=== PATIENT | female | born 1955 | race Caucasian/White ===

== ENCOUNTER 2021-04-29 06:12 | Observation (INO) | payer MEDICARE, BC ==
[2021-04-29] MEDS ORDERED: Ondansetron 4 MG/2 ML SDV ONE (06:35)
[2021-04-29] MEDS ORDERED: Sodium Chloride 0.9% 1,000 ML ONE (06:35)
[2021-04-29] MEDS ORDERED: Sodium Chloride 0.9% 1,000 ML IV ONE (06:38)
[2021-04-29] MEDS ORDERED: Ondansetron 4 MG/2 ML SDV IVPUSH ONE (06:38)
[2021-04-29] MEDS: Sodium Chloride 0.9% 10 ML Syringe FLUSH PRN ×2 (06:48→08:54)
--- NOTE | 2021-04-29 07:00 | EDM.PDOC ---
ED HPI GENERAL MEDICAL PROBLEM - General Chief Complaint: Abdominal Pain Stated Complaint: Abdominal Pain Time Seen by Provider: 04/29/21 06:40 Source of Information: Reports: Patient History Limitations: Reports: No Limitations - History of Present Illness INITIAL COMMENTS - FREE TEXT/NARRATIVE: 66 YO WF PRESENTS TO ER COMPLAINING OF GENERALIZED ABDOMINAL PAIN AND WATER DIARRHEA WHICH BEGAN YESTERDAY MORNING. PT REPORTS SHE DEVELOPED SEVERE/SHARP ABDOMINAL PAIN THAT MADE HER FEEL LIKE SHE WAS GOING TO PASS OUT. PT REPORTS ASSOCIATED NAUSEA WITHOUT VOMITING. PT DENIES FEVER/CHILLS, NO COUGH/CONGESTION. PT WORKS AT [employer] AND IS TESTED WEEKLY FOR COVID. PT IS ALSO VACCINATED FOR COVID. PT REPORTS PREVIOUS CHOLECYSTECTOMY AND APPENDECTOMY. PT DENIES BLACK OR BLOODY STOOLS. Onset Date: 04/28/21 Location: Reports: Abdomen Quality: Reports: Ache Severity: Severe Improves with: Reports: Rest Worsens with: Reports: Movement Associated Symptoms: Reports: No Other Symptoms, Loss of Appetite, Nausea/Vomiting. Denies: Chest Pain, Cough, Fever/Chills, Shortness of Breath, Syncope, Weakness Abdomen Pain Score (Numeric/FACES): 10 - Related Data Allergies Allergy/AdvReac Type Severity Reaction Status Date / Time chocolate flavor Allergy Airway Verified 04/29/21 06:23 Tightness diphenhydramine Allergy Other Verified 04/29/21 06:23 [From Benadryl] egg Allergy Airway Verified 04/29/21 06:23 Tightness fexofenadine [From Erica-D] Allergy Stomach Verified 04/29/21 06:23 Ache Fish Containing Products Allergy Airway Verified 04/29/21 06:23 Tightness loratadine [From Claritin-D] Allergy Other Verified 04/29/21 06:23 nut - unspecified Allergy Airway Verified 04/29/21 06:23 Tightness Penicillins Allergy Airway Verified 04/29/21 06:23 Tightness pregabalin [From Lyrica] Allergy Other Verified 04/29/21 06:50 pseudoephedrine Allergy Other Verified 04/29/21 06:23 [From Claritin-D] sertraline [From Zoloft] Allergy Airway Verified 04/29/21 06:23 Tightness Sulfa (Sulfonamide Allergy Airway Verified 04/29/21 06:23 Antibiotics) Tightness Home Meds: Home Meds Aspirin [Halfprin] 81 mg PO DAILY 04/29/21 [History] Calcium Carbonate/Vitamin D3 [Calcium 600-Vit D3 400 Tablet] 1 each PO DAILY 04/29/21 [History] Citalopram Hydrobromide [Celexa] 20 mg PO DAILY 04/29/21 [History] Niacin 400 mg PO DAILY 04/29/21 [History] Vit A/Vit C/Vit E/Zinc/Copper [Preservision] 1 tab PO DAILY 04/29/21 [History] rOPINIRole [Requip] 0.5 mg PO BID 04/29/21 [History] ED ROS GENERAL - Review of Systems Review Of Systems: See Below Constitutional: Reports: Decreased Appetite HEENT: Reports: No Symptoms Respiratory: Reports: No Symptoms Cardiovascular: Reports: No Symptoms Endocrine: Reports: No Symptoms GI/Abdominal: Reports: Abdominal Pain, Diarrhea, Nausea. Denies: Black Stool, Bloody Stool, Hematemesis, Hematochezia, Melena, Vomiting : Reports: No Symptoms Musculoskeletal: Reports: No Symptoms Skin: Reports: No Symptoms Neurological: Reports: No Symptoms Psychiatric: Reports: No Symptoms Hematologic/Lymphatic: Reports: No Symptoms Immunologic: Reports: No Symptoms ED EXAM, GI/ABD - Physical Exam Exam: See Below Exam Limited By: No Limitations General Appearance: Alert, WD/WN, No Apparent Distress Head: Atraumatic, Normocephalic Neck: Normal Inspection, Supple, Non-Tender, Full Range of Motion Respiratory/Chest: No Respiratory Distress, Lungs Clear, Normal Breath Sounds, No Accessory Muscle Use, Chest Non-Tender Cardiovascular: Normal Peripheral Pulses, Regular Rate, Rhythm, No Edema, No Gallop, No JVD, No Murmur, No Rub GI/Abdominal Exam: Normal Bowel Sounds, Soft, No Organomegaly, No Distention, No Abnormal Bruit, No Mass, Pelvis Stable, Tender (GENERALIZED BUT LOCALIZES TO RIGHT SIDE OF ABDOMINAL RUQ GREATER THAN RLQ) Back Exam: Normal Inspection, Full Range of Motion, NT Extremities: Normal Inspection, Normal Range of Motion, Non-Tender, Normal Capillary Refill, No Pedal Edema Neurological: Alert, Oriented, CN II-XII Intact, Normal Cognition, Normal Gait, Normal Reflexes, No Motor/Sensory Deficits Psychiatric: Normal Affect, Normal Mood Skin Exam: Warm, Dry, Intact, Normal Color, No Rash Lymphatic: No Adenopathy Course - Vital Signs Last Recorded V/S: Last Vital Signs Temp 98.2 F 04/29/21 06:27 Pulse 67 04/29/21 08:00 Resp 18 04/29/21 08:00 BP 127/81 04/29/21 08:00 Pulse Ox 98 04/29/21 08:00 - Orders/Labs/Meds Orders: Active Orders 24 hr Category Date Time Status Peripheral IV Care [RC] . DIRECTED Care 04/29/21 06:37 Active CULTURE URINE [RM] Urgent Lab 04/29/21 06:50 Received Sodium Chloride 0.9% [Normal Saline] 50 ml Med 04/29/21 07:15 Active IV ASDIRECTED Sodium Chloride 0.9% [Saline Flush] Med 04/29/21 06:37 Active 10 ml FLUSH Q8HR PRN Peripheral IV Insertion Adult [OM.PC] Routine Oth 04/29/21 06:37 Ordered Medication Orders Sodium Chloride (Normal Saline) 50 mls @ 200 mls/min IV ASDIRECTED PATRICIA Last Admin: 04/29/21 07:48 Dose: 200 mls/min Documented by: KAYLENE Sodium Chloride (Sodium Chloride 0.9% 10 Ml Syringe) 10 ml FLUSH Q8HR PRN PRN Reason: keep vein open Last Admin: 04/29/21 06:48 Dose: 10 ml Documented by: NII Labs: Laboratory Tests 04/29/21 04/29/21 04/29/21 Range/Units 06:37 06:37 06:50 WBC 9.21 (5.00-10.00) 10^3/uL RBC 4.84 (3.80-5.50) 10^6/uL Hgb 14.3 (12.0-16.0) g/dL Hct 42.6 (37.0-47.0) % MCV 88.0 (82.0-92.0) fL MCH 29.5 (27.0-31.0) pg MCHC 33.6 (32.0-36.0) g/dL RDW 12.9 (11.5-14.5) % Plt Count 280 (150-400) 10^3/uL MPV 9.1 (7.4-10.4) fL Immature Gran % (Auto) 0.1 (0.0-5.0) % Neut % (Auto) 77.2 H (50.0-70.0) % Lymph % (Auto) 13.5 L (20.0-40.0) % [place] % (Auto) 8.8 H (2.0-8.0) % Eos % (Auto) 0.2 L (1.0-3.0) % Baso % (Auto) 0.2 (0.0-1.0) % Neut # (Auto) 7.11 H (2.50-7.00) 10^3/uL Lymph # (Auto) 1.24 (1.00-4.00) 10^3/uL [place] # (Auto) 0.81 H (0.10-0.80) 10^3/uL Eos # (Auto) 0.02 L (0.10-0.30) 10^3/uL Baso # (Auto) 0.02 (0.00-0.10) 10^3/uL Immature Gran # (Auto) 0.01 (0.00-0.50) 10^3/uL Sodium 142 (136-145) mmol/L Potassium 4.4 (3.5-5.1) mmol/L Chloride 106 (98-107) mmol/L Carbon Dioxide 26.6 (21.0-32.0) mmol/L Anion Gap 13.8 (5-15) mmol/L BUN 22 H (7-18) mg/dL Creatinine 0.72 (0.51-1.17) mg/dL Est Cr Clr Drug Dosing 63.58 mL/min Estimated GFR (MDRD) > 60 mL/min Glucose 142 H (70-140) mg/dL Calcium 9.3 (8.7-10.3) mg/dL Total Bilirubin 0.4 (0.2-1.0) mg/dL AST 15 (15-37) U/L ALT 25 (14-63) U/L Alkaline Phosphatase 53 (46-116) U/L Total Protein 7.0 (6.4-8.2) g/dL Albumin 3.49 (3.40-5.00) g/dL Lipase 98 (73-393) U/L Specimen Type Urincc Urine Color Yellow (YELLOW) Urine Appearance Slightly cloudy H (CLEAR) Urine pH 6.0 (5.0-9.0) Ur Specific [place] 1.025 (1.005-1.030) Urine Protein Negative (NEGATIVE) mg/dL Urine Glucose (UA) Negative (NEGATIVE) mg/dL Urine Ketones Negative (NEGATIVE) mg/dL Urine Occult Blood Large H (NEGATIVE) Urine Nitrite Negative (NEGATIVE) Urine Bilirubin Negative (NEGATIVE) Urine Urobilinogen 0.2 (0.2-1.0) E.U./dL Ur Leukocyte Esterase Trace H (NEGATIVE) Urine RBC 40-50 H (0-5) /HPF Urine WBC 10-20 H (0-5) /HPF Ur Epithelial Cells Few /LPF Urine Bacteria Few (NONE TO FEW) /HPF Urine Mucus Occasional H (NEGATIVE) /LPF Meds: Medications Generic Name Dose Route Start Last Admin Trade Name Freq PRN Reason Stop Dose Admin Sodium Chloride 50 mls @ 200 mls/min 04/29/21 07:15 04/29/21 07:48 Normal Saline IV 200 mls/min ASDIRECTED PATRICIA Administration Sodium Chloride 10 ml 04/29/21 06:37 04/29/21 06:48 Sodium Chloride 0.9% 10 Ml Syringe FLUSH 10 ml Q8HR PRN Administration keep vein open Discontinued Medications Generic Name Dose Route Start Last Admin Trade Name Freq PRN Reason Stop Dose Admin Sodium Chloride Confirm 04/29/21 06:35 04/29/21 06:45 Normal Saline Administered 04/29/21 06:36 Not Given Dose 1,000 mls @ as directed .ROUTE .STK-MED ONE Sodium Chloride 1,000 mls @ 999 mls/hr 04/29/21 06:38 04/29/21 06:46 Normal Saline IV 04/29/21 07:38 999 mls/hr .BOLUS ONE Administration Iopamidol 75 ml 04/29/21 07:13 04/29/21 07:48 Iopamidol 755 Mg/Ml 75 Ml Bottle IVPUSH 04/29/21 07:14 75 ml ONETIME ONE Administration Ketorolac Tromethamine 30 mg 04/29/21 07:18 04/29/21 07:30 Ketorolac 30 Mg/Ml Sdv IVPUSH 04/29/21 07:19 30 mg ONETIME ONE Administration Ondansetron HCl Confirm 04/29/21 06:35 04/29/21 06:45 Ondansetron 4 Mg/2 Ml Sdv Administered 04/29/21 06:36 Not Given Dose 4 mg .ROUTE .STK-MED ONE Ondansetron HCl 4 mg 04/29/21 06:38 04/29/21 06:46 Ondansetron 4 Mg/2 Ml Sdv IVPUSH 04/29/21 06:39 4 mg ONETIME ONE Administration - Radiology Interpretation Free Text/Narrative:: CT ABD/PELVIS- JEJUNUM INFLAMMATORY CHANGES CONSISTENT WITH ENTERITIS- INFLAMMATORY VS INFECTIOUS. Departure - Departure Time of Disposition: 08:49 Disposition: Refer to Observation Condition: Fair Clinical Impression: Enteritis Abdominal pain Qualifiers: Abdominal location: generalized Qualified Code(s): R10.84 - Generalized abdominal pain - Discharge Information Forms: ED Department Discharge Sepsis Event Note (ED) - Focused Exam Vital Signs: Vital Signs Temp Pulse Resp BP Pulse Ox 04/29/21 08:00 67 18 127/81 98 04/29/21 07:08 68 20 114/72 99 04/29/21 06:27 98.2 F 66 20 119/73 96 - My Orders Last 24 Hours: My Active Orders 04/29/21 06:37 Peripheral IV Care [RC] . DIRECTED Sodium Chloride 0.9% [Saline Flush] 10 ml FLUSH Q8HR PRN Peripheral IV Insertion Adult [OM.PC] Routine 04/29/21 06:50 CULTURE URINE [RM] Urgent 04/29/21 07:15 Sodium Chloride 0.9% [Normal Saline] 50 ml IV ASDIRECTED - Assessment/Plan Last 24 Hours: My Active Orders 04/29/21 06:37 Peripheral IV Care [RC] . DIRECTED Sodium Chloride 0.9% [Saline Flush] 10 ml FLUSH Q8HR PRN Peripheral IV Insertion Adult [OM.PC] Routine 04/29/21 06:50 CULTURE URINE [RM] Urgent 04/29/21 07:15 Sodium Chloride 0.9% [Normal Saline] 50 ml IV ASDIRECTED Assessment:: 1. ABDOMINAL PAIN 2. ENTERITIS- INFECTIOUS VS INFLAMMATORY Plan: 1. ADMIT FOR OBS- VANDANA HUNTER ACCEPTED @0833 2. IVF 3. NPO 4. SUPPORTIVE CARE 5. ADDITIONAL ORDERS PER MEDICINE- VANDANA ROBLES
[2021-04-29 07:07] LABS: ANION GAP 13.8 mmol/L (5-15); CHLORIDE,CL 106 mmol/L (98-107); SODIUM,NA 142 mmol/L (136-145)
[2021-04-29] MEDS ORDERED: Iopamidol 755 Mg/ML 75 ML Bottle IVPUSH ONE (07:13)
[2021-04-29] MEDS ORDERED: Sodium Chloride 0.9% 50 ML IV SCH (07:15)
[2021-04-29] MEDS ORDERED: Ketorolac 30 MG/ML SDV IVPUSH ONE (07:18)
--- NOTE | 2021-04-29 08:26 | CT ---
[id number] CT/CT Abdomen Pelvis W IV EXAM: CT Abdomen Pelvis W IV CLINICAL DATA: ABDOMINAL PAIN COMPARISON STUDY: None. FINDINGS: Partially visualized subcentimeter noncalcified pulmonary nodule at the right lung base. Dependent atelectasis at the lung bases bilaterally. The gallbladder is surgically absent. The liver, spleen, pancreas, and adrenal glands are unremarkable. 11 mm calculus a right lower pole calyx resulting in mild caliectasis. Bilateral renal cortical cysts. There are a few abnormal loops of jejunum within the left lower quadrant. There is wall thickening and edema with associated inflammatory change and trace adjacent free fluid. No evidence of obstruction. Multiple prominent mesenteric lymph nodes none of which are pathologically enlarged by CT size criteria. Scattered changes of spondylosis the spine. No fracture or osseous lesion. IMPRESSION: 1. A few abnormal loops of small bowel within the left lower quadrant. This includes wall thickening and wall edema. Additionally there is surrounding inflammatory change as well as a small amount of trace free fluid. No definite evidence of obstruction. Findings are suggestive of focal enteritis. Infectious/inflammatory process is favored. Surgical consultation could be considered for further evaluation. 2. 11 mm calculus a right lower pole calyx resulting in mild caliectasis. Kevin Marcial DO 04/29/21 0825 Thank you for allowing us to participate in the care of your patient.
[2021-04-29] MEDS ORDERED: methylPREDNISolone Sodium Succinate 125 MG/2 ML SDV IVPUSH ONE (08:39)
[2021-04-29] MEDS: Sodium Chloride 0.9% 1,000 ML IV SCH ×2 (10:10→18:19)
[2021-04-29] MEDS ORDERED: Ketorolac 30 MG/ML SDV IVPUSH PRN ×3 (10:58→11:48)
[2021-04-29] MEDS ORDERED: Ondansetron 4 MG/2 ML SDV IV PRN (10:59)
[2021-04-29] MEDS ORDERED: Sodium Chloride 0.9% 1,000 ML IV SCH (11:00)
--- NOTE | 2021-04-29 11:58 | PCM.HP.2 ---
H&P History of Present Illness - General Date of Service: 04/29/21 Admit Problem/Dx: Admission Diagnosis/Problem Admission Diagnosis/Problem Enteritis Source of Information: Patient - History of Present Illness Initial Comments - Free Text/Narative: 66 year old female presented to the ED with complaints of generalized severe abdominal pain for the past day. She has had four episodes of watery diarrhea and nausea, but no vomiting. Denies fever/chills. Last colonoscopy one year ago and normal per report. CT scan completed in the ED revealing "a few abnormal loops of jejunum within the left lower quadrant. This includes wall thickening and wall edema. Additionally there is surrounding inflammatory change as well as a small amount of trace free fluid. No definite evidence of obstruction. Findings are suggestive of focal enteritis. Infectious/inflammatory process favored. Surgical consultation could be considered for further evalutation.". Patient admitted observation for further evaluation. Abdomen Pain Score (Numeric/FACES): 10 - Related Data Allergies/Adverse Reactions: Allergies Allergy/AdvReac Type Severity Reaction Status Date / Time chocolate flavor Allergy Airway Verified 04/29/21 06:23 Tightness diphenhydramine Allergy Other Verified 04/29/21 06:23 [From Benadryl] egg Allergy Airway Verified 04/29/21 06:23 Tightness fexofenadine [From Erica-D] Allergy Stomach Verified 04/29/21 06:23 Ache Fish Containing Products Allergy Airway Verified 04/29/21 06:23 Tightness loratadine [From Claritin-D] Allergy Other Verified 04/29/21 06:23 nut - unspecified Allergy Airway Verified 04/29/21 06:23 Tightness Penicillins Allergy Airway Verified 04/29/21 06:23 Tightness pregabalin [From Lyrica] Allergy Other Verified 04/29/21 06:50 pseudoephedrine Allergy Other Verified 04/29/21 06:23 [From Claritin-D] sertraline [From Zoloft] Allergy Airway Verified 04/29/21 06:23 Tightness Sulfa (Sulfonamide Allergy Airway Verified 04/29/21 06:23 Antibiotics) Tightness Home Medications: Home Meds Aspirin [Halfprin] 81 mg PO DAILY 04/29/21 [History] Calcium Carbonate/Vitamin D3 [Calcium 600-Vit D3 400 Tablet] 1 each PO DAILY 04/29/21 [History] Citalopram Hydrobromide [Celexa] 20 mg PO DAILY 04/29/21 [History] Niacin 400 mg PO DAILY 04/29/21 [History] Vit A/Vit C/Vit E/Zinc/Copper [Preservision] 1 tab PO DAILY 04/29/21 [History] rOPINIRole [Requip] 0.5 mg PO BID 04/29/21 [History] Past Medical History HEENT History: Reports: Impaired Vision Cardiovascular History: Reports: None Respiratory History: Reports: None Genitourinary History: Reports: None Musculoskeletal History: Reports: None Psychiatric History: Reports: Anxiety, Depression Endocrine/Metabolic History: Reports: None Dermatologic History: Reports: None - Infectious Disease History Infectious Disease History: Reports: Influenza - Past Surgical History GI Surgical History: Reports: Appendectomy, Cholecystectomy Female Surgical History: Reports: Hysterectomy Social & Family History - Tobacco Use Tobacco Use Status *Q: Never Tobacco User - Caffeine Use Caffeine Use: Reports: Soda - Recreational Drug Use Recreational Drug Use: No H&P Review of Systems - Review of Systems: Review Of Systems: See Below General: Denies: Fever, Weakness, Fatigue HEENT: Denies: Headaches, Sinus Congestion, Sore Throat Pulmonary: Denies: Shortness of Breath, Wheezing, Cough Cardiovascular: Denies: Chest Pain, Palpitations, Edema, Lightheadedness Gastrointestinal: Reports: Abdominal Pain (generalized), Diarrhea (four "explosive" diarrhea stools), Nausea. Denies: Bloody Stool, Vomiting Genitourinary: Denies: Dysuria, Frequency, Urgency, Hematuria Musculoskeletal: Reports: Back Pain (chronic), Muscle Pain (chronic). Denies: Neck Pain Skin: Denies: Pallor, Dryness, Bruising, Rash, Erythema Psychiatric: Denies: Confusion, Depression, Anxiety Neurological: Denies: Confusion, Headache, Trouble Speaking, Difficulty Walking Exam - Exam Exam: See Below - Vital Signs Vital Signs: Last Vital Signs Temp 36.9 C 04/29/21 10:00 Pulse 62 04/29/21 10:00 Resp 16 04/29/21 10:00 BP 117/69 04/29/21 10:00 Pulse Ox 98 04/29/21 10:00 Weight: 69.49 kg - Exam Physical Exam Comments:: GENERAL: Well-appearing adult in no acute distress. HEENT: Normocephalic, atraumatic. Conjunctiva clear. Nares patent without discharge. Mucous membranes moist, posterior pharynx unremarkable. NECK: Supple, no masses. CV: Regular rate and rhythm, no murmurs, rubs, or gallops. 2+ radial pulses. PULMONARY: Normal effort, clear to auscultation bilaterally, no wheezes, rales, or rhonchi. ABDOMEN: Positive bowel sounds, soft, nondistended, generalized mild tenderness on palpation. EXTREMITIES: No edema, cyanosis, or clubbing. MUSCULOSKELETAL: Moves all extremities well. NEUROLOGICAL: No obvious deficits. DERMATOLOGIC: No rashes or suspicious lesions in exposed areas. PSYCHIATRIC: Alert, interactive, appropriate affect. - Patient Data Lab Results Last 24 hrs: Laboratory Results - last 24 hr 04/29/21 04/29/21 04/29/21 Range/Units 06:37 06:37 06:50 WBC 9.21 (5.00-10.00) 10^3/uL RBC 4.84 (3.80-5.50) 10^6/uL Hgb 14.3 (12.0-16.0) g/dL Hct 42.6 (37.0-47.0) % MCV 88.0 (82.0-92.0) fL MCH 29.5 (27.0-31.0) pg MCHC 33.6 (32.0-36.0) g/dL RDW 12.9 (11.5-14.5) % Plt Count 280 (150-400) 10^3/uL MPV 9.1 (7.4-10.4) fL Immature Gran % (Auto) 0.1 (0.0-5.0) % Neut % (Auto) 77.2 H (50.0-70.0) % Lymph % (Auto) 13.5 L (20.0-40.0) % Carbon % (Auto) 8.8 H (2.0-8.0) % Eos % (Auto) 0.2 L (1.0-3.0) % Baso % (Auto) 0.2 (0.0-1.0) % Neut # (Auto) 7.11 H (2.50-7.00) 10^3/uL Lymph # (Auto) 1.24 (1.00-4.00) 10^3/uL Carbon # (Auto) 0.81 H (0.10-0.80) 10^3/uL Eos # (Auto) 0.02 L (0.10-0.30) 10^3/uL Baso # (Auto) 0.02 (0.00-0.10) 10^3/uL Immature Gran # (Auto) 0.01 (0.00-0.50) 10^3/uL Sodium 142 (136-145) mmol/L Potassium 4.4 (3.5-5.1) mmol/L Chloride 106 (98-107) mmol/L Carbon Dioxide 26.6 (21.0-32.0) mmol/L Anion Gap 13.8 (5-15) mmol/L BUN 22 H (7-18) mg/dL Creatinine 0.72 (0.51-1.17) mg/dL Est Cr Clr Drug Dosing 63.58 mL/min Estimated GFR (MDRD) > 60 mL/min Glucose 142 H (70-140) mg/dL Calcium 9.3 (8.7-10.3) mg/dL Total Bilirubin 0.4 (0.2-1.0) mg/dL AST 15 (15-37) U/L ALT 25 (14-63) U/L Alkaline Phosphatase 53 (46-116) U/L Total Protein 7.0 (6.4-8.2) g/dL Albumin 3.49 (3.40-5.00) g/dL Lipase 98 (73-393) U/L Specimen Type Urincc Urine Color Yellow (YELLOW) Urine Appearance Slightly cloudy H (CLEAR) Urine pH 6.0 (5.0-9.0) Ur Specific [place] 1.025 (1.005-1.030) Urine Protein Negative (NEGATIVE) mg/dL Urine Glucose (UA) Negative (NEGATIVE) mg/dL Urine Ketones Negative (NEGATIVE) mg/dL Urine Occult Blood Large H (NEGATIVE) Urine Nitrite Negative (NEGATIVE) Urine Bilirubin Negative (NEGATIVE) Urine Urobilinogen 0.2 (0.2-1.0) E.U./dL Ur Leukocyte Esterase Trace H (NEGATIVE) Urine RBC 40-50 H (0-5) /HPF Urine WBC 10-20 H (0-5) /HPF Ur Epithelial Cells Few /LPF Urine Bacteria Few (NONE TO FEW) /HPF Urine Mucus Occasional H (NEGATIVE) /LPF SARS CoV-2 RNA Rapid CARMINA (NEGATIVE) 04/29/21 Range/Units 09:00 WBC (5.00-10.00) 10^3/uL RBC (3.80-5.50) 10^6/uL Hgb (12.0-16.0) g/dL Hct (37.0-47.0) % MCV (82.0-92.0) fL MCH (27.0-31.0) pg MCHC (32.0-36.0) g/dL RDW (11.5-14.5) % Plt Count (150-400) 10^3/uL MPV (7.4-10.4) fL Immature Gran % (Auto) (0.0-5.0) % Neut % (Auto) (50.0-70.0) % Lymph % (Auto) (20.0-40.0) % Carbon % (Auto) (2.0-8.0) % Eos % (Auto) (1.0-3.0) % Baso % (Auto) (0.0-1.0) % Neut # (Auto) (2.50-7.00) 10^3/uL Lymph # (Auto) (1.00-4.00) 10^3/uL Carbon # (Auto) (0.10-0.80) 10^3/uL Eos # (Auto) (0.10-0.30) 10^3/uL Baso # (Auto) (0.00-0.10) 10^3/uL Immature Gran # (Auto) (0.00-0.50) 10^3/uL Sodium (136-145) mmol/L Potassium (3.5-5.1) mmol/L Chloride (98-107) mmol/L Carbon Dioxide (21.0-32.0) mmol/L Anion Gap (5-15) mmol/L BUN (7-18) mg/dL Creatinine (0.51-1.17) mg/dL Est Cr Clr Drug Dosing mL/min Estimated GFR (MDRD) mL/min Glucose (70-140) mg/dL Calcium (8.7-10.3) mg/dL Total Bilirubin (0.2-1.0) mg/dL AST (15-37) U/L ALT (14-63) U/L Alkaline Phosphatase (46-116) U/L Total Protein (6.4-8.2) g/dL Albumin (3.40-5.00) g/dL Lipase (73-393) U/L Specimen Type Urine Color (YELLOW) Urine Appearance (CLEAR) Urine pH (5.0-9.0) Ur Specific [place] (1.005-1.030) Urine Protein (NEGATIVE) mg/dL Urine Glucose (UA) (NEGATIVE) mg/dL Urine Ketones (NEGATIVE) mg/dL Urine Occult Blood (NEGATIVE) Urine Nitrite (NEGATIVE) Urine Bilirubin (NEGATIVE) Urine Urobilinogen (0.2-1.0) E.U./dL Ur Leukocyte Esterase (NEGATIVE) Urine RBC (0-5) /HPF Urine WBC (0-5) /HPF Ur Epithelial Cells /LPF Urine Bacteria (NONE TO FEW) /HPF Urine Mucus (NEGATIVE) /LPF SARS CoV-2 RNA Rapid CARMINA Negative (NEGATIVE) Result Diagrams: 04/29/21 06:37 04/29/21 06:37 Sepsis Event Note - Evaluation Sepsis Screening Result: No Definite Risk - Focused Exam Vital Signs: Vital Signs Temp Pulse Resp BP Pulse Ox Pulse Ox 04/29/21 10:00 36.9 C 62 16 117/69 98 04/29/21 08:46 98 04/29/21 08:00 67 18 127/81 98 04/29/21 07:08 68 20 114/72 99 04/29/21 06:27 36.8 C 66 20 119/73 96 Problem List Initiated/Reviewed/Updated: Yes Orders Last 24hrs: Active Orders 24 hr Category Date Time Status Patient Status [ADT] Routine ADT 04/29/21 08:46 Active Intake and Output [RC] QSHIFT Care 04/29/21 10:59 Active Oxygen Therapy [RC] PRN Care 04/29/21 08:46 Active Peripheral IV Care [RC] . DIRECTED Care 04/29/21 06:37 Active Up With Assistance [RC] ASDIRECTED Care 04/29/21 08:46 Active VTE/DVT Education [RC] PER UNIT ROUTINE Care 04/29/21 08:46 Active Vital Signs [RC] 03,07,11,15,19,23 Care 04/29/21 08:46 Active Full Liquid Diet [DIET] Diet 04/29/21 Lunch Active Nothing per Oral Now Diet [DIET] Diet 04/29/21 Breakfast Active C DIFFICILE TOXIN IMMUNOASSAY [MREF] Routine Lab 04/29/21 10:37 Ordered CBC WITH AUTO DIFF [HEME] AM Lab 04/30/21 05:11 Ordered CMP [COMPREHENSIVE METABOLIC PN,CMP] [CHEM] AM Lab 04/30/21 05:11 Ordered CRP [C-REACTIVE PROTEIN] [CHEM] AM Lab 04/30/21 05:11 Ordered CRP [C-REACTIVE PROTEIN] [CHEM] Routine Lab 04/29/21 11:03 Ordered CULTURE URINE [RM] Urgent Lab 04/29/21 06:50 Received OCCULT BLD DIAGNOS Routine Lab 04/29/21 10:36 Ordered STOOL CULTURE [MREF] Routine Lab 04/29/21 10:34 Ordered Ketorolac [Toradol] Med 04/29/21 10:58 Ordered 30 mg IVPUSH Q8H PRN Ondansetron [Zofran] Med 04/29/21 10:59 Ordered 4 mg IV Q6H PRN Sodium Chloride 0.9% [Normal Saline] 1,000 ml Med 04/29/21 09:00 Active IV ASDIRECTED Sodium Chloride 0.9% [Normal Saline] 1,000 ml Med 04/29/21 11:00 Ordered IV ASDIRECTED Sodium Chloride 0.9% [Normal Saline] 50 ml Med 04/29/21 07:15 Active IV ASDIRECTED Sodium Chloride 0.9% [Saline Flush] Med 04/29/21 06:37 Active 10 ml FLUSH Q8HR PRN rOPINIRole [Requip] Med 04/29/21 21:00 Ordered 0.5 mg PO BID Peripheral IV Insertion Adult [OM.PC] Routine Oth 04/29/21 06:37 Ordered Resuscitation Status Routine Resus Stat 04/29/21 08:46 Ordered Medication Orders Sodium Chloride (Normal Saline) 50 mls @ 200 mls/min IV ASDIRECTED PATRICIA Last Admin: 04/29/21 07:48 Dose: 200 mls/min Documented by: KAYLENE Sodium Chloride (Normal Saline) 1,000 mls @ 125 mls/hr IV ASDIRECTED PATRICIA Last Admin: 04/29/21 10:10 Dose: 125 mls/hr Documented by: JENNY Sodium Chloride (Normal Saline) 1,000 mls @ 125 mls/hr IV ASDIRECTED [facility] Ketorolac Tromethamine (Ketorolac 30 Mg/Ml Sdv) 30 mg IVPUSH Q8H PRN PRN Reason: Pain Stop: 05/04/21 10:58 Non-Formulary Medication (Ropinirole [Requip]) 0.5 mg PO BID [facility] Ondansetron HCl (Ondansetron 4 Mg/2 Ml Sdv) 4 mg IV Q6H PRN PRN Reason: Nausea/Vomiting Sodium Chloride (Sodium Chloride 0.9% 10 Ml Syringe) 10 ml FLUSH Q8HR PRN PRN Reason: keep vein open Last Admin: 04/29/21 08:54 Dose: 10 ml Documented by: Admin: 04/29/21 06:48 Dose: 10 ml Documented by: NII Assessment/Plan Comment:: HPI summary: 66 year old female presented to the ED with complaints of generalized severe abdominal pain for the past day. She has had four episodes of watery diarrhea and nausea, but no vomiting. Denies fever/chills. Last colonoscopy one year ago and normal per report. CT scan completed in the ED revealing "a few abnormal loops of jejunum within the left lower quadrant. This includes wall thickening and wall edema. Additionally there is surrounding inflammatory change as well as a small amount of trace free fluid. No definite evidence of obstruction. Findings are suggestive of focal enteritis. Infectious/inflammatory process favored. Surgical consultation could be considered for further evaluation.". Patient admitted observation for further evaluation. ED course: -VS: 98.2-67-18-127/81-98%/RA -Lab: WBC 9.21, Hgb 14.3, Hct 42.6, Plt 280, Neut 77.2%, lymph 13.5%, mono 8.8% , Na 142, K 4.4, Cl 106, anion gap 13.8, BUN 22, Cr 0.72, Ca 9.3, LFT unremarkable, albumin 3.49, lipase 98; COVID neg -Urine: slightly cloudy, lg occult blood, neg nitrites, trace leukocyte est, 40-50RBC, 10-20 WBC, few epithelial, few bacteria, occ mucus (urine culture pending) -Ct abd/pelvis: A few abnormal loops of jejunum within the left lower quadrant. This includes wall thickening and wall edema. Additionally there is surrounding inflammatory change as well as a small amount of trace free fluid. No definite evidence of obstruction. Findings are suggestive of focal enterit is. Infectious/inflammatory process favored. Surgical consultation could be considered for further evaluation. Multiple prominent mesenteric lymph nodes, none of which are pathologically enlarged by CT size criteria. Incidentals: noncalcified pulm nodule right lung base, 11mm calculus right lower pole calyx resulting in mild caliectasis, bilateral renal cortical cysts, scattered changes of spondylosis of the spine -NS IV bolus 1 liter, ketorolac 30mg IVP, ondansetron 4mg IVP, Solu-medrol 125mg IVP Hospital course: 04/29/2021: Patient sitting up in bed, no acute distress, pain improved. No nausea, vomiting or diarrhea at this time. Afebrile, VSS. CRP 1.8. Review of ED record and labs. Patient will be allowed full liquid diet for now. IVF. Review of [place] record, last colonoscopy 03/26/2018 and normal. Patient report fam hx positive for diverticulitis, but not inflammatory bowel disease, father had colon CA. Surg hx hysterectomy, appendectomy, cholecystectomy Hospitalization problems and plan: # Jejunal enteritis; inflammatory vs infectious; afebrile no leukocytosis at this time - NS 125mL/hr - NPO, ice chips - Stool occult blood, Stool culture and cdiff pending - ondansetron PRN, ketorolac PRN, acetaminophen oral PRN # Hematuria, mild dilation of right calyx; with normal renal function - ketorolac PRN and IVF Chronic, stable conditions: # Hyperlipidemia # RLS: continue ropinirole # Depression: continue citalopram Hospitalization details: # FEN: NS 125mL/hr, electrolytes stable, NPO/ice chips # PPX: protonix IV # Code status: Full code # Emergency contact: updated by nursing # Disposition: possible discharge tomorrow afternoon if able to tolerate diet and pain is resolving without fever/leukocytosis - Mortality Measure Prognosis:: Good
[2021-04-29] MEDS ORDERED: Acetaminophen 325 MG Tab PO PRN (12:12)
[2021-04-29] MEDS: Pantoprazole 40 MG Vial IVPUSH SCH (12:32)
[2021-04-29] MEDS ORDERED: Citalopram 20 MG Tab **OWN MED PO SCH (20:00)
[2021-04-29] MEDS ORDERED: rOPINIRole 0.25 MG Tab PO SCH (21:00)
[2021-04-30] MEDS: Sodium Chloride 0.9% 1,000 ML IV SCH (01:59)
[2021-04-30 08:43] LABS: ANION GAP 11.4 mmol/L (5-15); CHLORIDE,CL 110 mmol/L (98-107); SODIUM,NA 144 mmol/L (136-145)
[2021-04-30] MEDS ORDERED: Citalopram 20 MG Tab PO SCH (09:00)
[2021-04-30] MEDS: Pantoprazole 40 MG Vial IVPUSH SCH (09:17)
--- NOTE | 2021-04-30 12:42 | PCM.DCSUM1 ---
Discharge Summary - Hospital Course Free Text/Narrative:: Date of admission: 04/29/21 Date of discharge: 04/30/21 Admission diagnoses: # Jejunal enteritis; improved. - Stool cultures pending - C-diff canceled due to formed stool # Renal caliectsis, 11mm renal calculus of R renal pole Discharge diagnoses: # Hyperlipidemia # RLS: continue ropinirole # Depression: continue citalopram HPI summary: Erendira is a 66 yF who presented to the ED with complaints of generalized severe abdominal pain for the past day. She has had four episodes of watery diarrhea and nausea, but no vomiting. Denies fever/chills. Last colonoscopy one year ago and normal per report. CT scan completed in the ED revealing "a few abnormal loops of jejunum within the left lower quadrant. This includes wall thickening and wall edema. Additionally there is surrounding inflammatory change as well as a small amount of trace free fluid. No definite evidence of obstruction. Findings are suggestive of focal enteritis. Infecti ous/inflammatory process favored. Surgical consultation could be considered for further evaluation.". Patient admitted observation for further evaluation. ED course: -VS: 98.2-67-18-127/81-98%/RA -Lab: WBC 9.21, Hgb 14.3, Hct 42.6, Plt 280, Neut 77.2%, lymph 13.5%, mono 8.8% , Na 142, K 4.4, Cl 106, anion gap 13.8, BUN 22, Cr 0.72, Ca 9.3, LFT unremarkable, albumin 3.49, lipase 98; COVID neg -Urine: slightly cloudy, lg occult blood, neg nitrites, trace leukocyte est, 40-50 RBC, 10-20 WBC, few epithelial, few bacteria, occ mucus (urine culture pending) -Ct abd/pelvis: A few abnormal loops of jejunum within the left lower quadrant. This includes wall thickening and wall edema. Additionally there is surrounding inflammatory change as well as a small amount of trace free fluid. No definite evidence of obstruction. Findings are suggestive of focal enteritis. Infectious/inflammatory process favored. Surgical consultation could be considered for further evaluation. Multiple prominent mesenteric lymph nodes, none of which are pathologically enlarged by CT size criteria. Incidentals: noncalcified pulm nodule right lung base, 11mm calculus right lower pole calyx resulting in mild caliectasis, bilateral renal cortical cysts, scattered changes of spondylosis of the spine -NS IV bolus 1 liter, ketorolac 30mg IVP, ondansetron 4mg IVP, Solumedrol 125mg IVP. Patient admitted to observation status per on-call [place] provider, Kira Howard APRN, CNP Hospital course: 04/29/2021: Patient sitting up in bed, no acute distress, pain improved. No nausea, vomiting or diarrhea at this time. Afebrile, VSS. CRP 1.8. Review of ED record and labs. Patient will be allowed full liquid diet for now. IVF. Review of [place] record, last colonoscopy 03/26/2018 and normal. Patient report fam hx positive for diverticulitis, but not inflammatory bowel disease, father had colon CA. Surg hx hysterectomy, appendectomy, cholecystectomy 04/30/21: Patient sitting on sofa in street clothes upon rounding today. She reports resolution of symptoms, no further diarrhea, no N/V. Denies any gross hematuria, no hx of renal calculi. Stool cultures pending. Stool was formed, no C-diff completed due to this. Vitals stable. WBC trending downward, 10.09 today (64.9% neutrophils) and patient received dose of IV steroids in ER. No concern for bacterial infection. Patient tolerating diet well. Referral to urology placed upon discharge for further evaluation of renal caliectasis and 11mm renal calculus in the R lower renal pole. Recommend soft bland diet due to focal enteritis of the jejunum on CT. Discharge and follow-up recommendations: - Discharge to home per self care. - New medications at discharge: No new medications - Follow-up with Daksha Laws APRN, CNP in next 7-10 days or sooner if concerns; soft bland diet- followup with urology for 11mm renal stone in right lower pole with associated caliectasis, orders placed in [facility] for referral. - Discharge Data Discharge Date: 04/30/21 Discharge Disposition: Home, Self-Care 01 Condition: Good - Referral to Home Health Primary Care Physician: Daksha Laws NP - Patient Instructions Diet, Other: soft, bland diet Activity: As Tolerated Driving: Do Not Drive Showering/Bathing: May Shower Notify Provider of: Increased Pain, Nausea and/or Vomiting - Discharge Plan *PRESCRIPTION DRUG MONITORING PROGRAM REVIEWED*: Not Applicable *COPY OF PRESCRIPTION DRUG MONITORING REPORT IN PATIENT LADA: Not Applicable Home Medications: Home Meds Aspirin [Halfprin] 81 mg PO DAILY 04/29/21 [History] Calcium Carbonate/Vitamin D3 [Calcium 600-Vit D3 400 Tablet] 1 each PO DAILY 04/29/21 [History] Citalopram Hydrobromide [Celexa] 20 mg PO DAILY 04/29/21 [History] Niacin 400 mg PO DAILY 04/29/21 [History] Vit A/Vit C/Vit E/Zinc/Copper [Preservision] 1 tab PO DAILY 04/29/21 [History] rOPINIRole [Requip] 0.5 mg PO BID 04/29/21 [History] Oxygen Therapy Mode: Room Air Referrals: Daksha Laws NP [Primary Care Provider] - (Please call [place] to schedule follow-up with PCP in next 7-10 days. Please call sooner if concerns.) - Discharge Summary/Plan Comment DC Time >30 min.: Yes Total # of Minutes for Discharge Time: 35 - General Info Date of Service: 04/30/21 Functional Status: Reports: Pain Controlled, Tolerating Diet, Ambulating, Urinating. Denies: New Symptoms - Review of Systems General: Reports: No Symptoms HEENT: Reports: No Symptoms Pulmonary: Reports: No Symptoms Cardiovascular: Reports: No Symptoms Gastrointestinal: Reports: No Symptoms. Denies: Diarrhea, Nausea, Vomiting Genitourinary: Reports: No Symptoms Musculoskeletal: Reports: No Symptoms Skin: Reports: No Symptoms Neurological: Reports: No Symptoms Psychiatric: Reports: No Symptoms - Patient Data Vitals - Most Recent: Last Vital Signs Temp 97.0 F 04/30/21 06:41 Pulse 59 L 04/30/21 06:41 Resp 16 04/30/21 06:41 BP 105/62 04/30/21 06:41 Pulse Ox 97 04/30/21 06:41 Weight - Most Recent: 153 lb 3.2 oz I&O - Last 24 hours: Intake & Output 04/29/21 04/30/21 04/30/21 22:59 06:59 14:59 Intake Total 1065 1235 Output Total 500 800 Balance 565 435 Lab Results - Last 24 hrs: Laboratory Results - last 24 hr 04/30/21 04/30/21 Range/Units 07:10 07:10 WBC 10.09 H (5.00-10.00) 10^3/uL RBC 4.18 (3.80-5.50) 10^6/uL Hgb 12.5 D (12.0-16.0) g/dL Hct 38.1 (37.0-47.0) % MCV 91.1 D (82.0-92.0) fL MCH 29.9 (27.0-31.0) pg MCHC 32.8 (32.0-36.0) g/dL RDW 13.3 (11.5-14.5) % Plt Count 240 (150-400) 10^3/uL MPV 9.4 (7.4-10.4) fL Immature Gran % (Auto) 0.1 (0.0-5.0) % Neut % (Auto) 64.9 (50.0-70.0) % Lymph % (Auto) 26.3 (20.0-40.0) % Mccracken % (Auto) 8.1 H (2.0-8.0) % Eos % (Auto) 0.4 L (1.0-3.0) % Baso % (Auto) 0.2 (0.0-1.0) % Neut # (Auto) 6.55 (2.50-7.00) 10^3/uL Lymph # (Auto) 2.65 (1.00-4.00) 10^3/uL Mccracken # (Auto) 0.82 H (0.10-0.80) 10^3/uL Eos # (Auto) 0.04 L (0.10-0.30) 10^3/uL Baso # (Auto) 0.02 (0.00-0.10) 10^3/uL Immature Gran # (Auto) 0.01 (0.00-0.50) 10^3/uL Sodium 144 (136-145) mmol/L Potassium 4.5 (3.5-5.1) mmol/L Chloride 110 H (98-107) mmol/L Carbon Dioxide 27.1 (21.0-32.0) mmol/L Anion Gap 11.4 (5-15) mmol/L BUN 12 (7-18) mg/dL Creatinine 0.71 (0.51-1.17) mg/dL Est Cr Clr Drug Dosing 64.47 mL/min Estimated GFR (MDRD) > 60 mL/min Glucose 95 (70-140) mg/dL Calcium 8.8 (8.7-10.3) mg/dL Total Bilirubin 0.4 (0.2-1.0) mg/dL AST 14 L (15-37) U/L ALT 23 (14-63) U/L Alkaline Phosphatase 43 L (46-116) U/L C-Reactive Protein 0.7 (0.0-0.9) mg/dL Total Protein 6.0 L (6.4-8.2) g/dL Albumin 3.13 L (3.40-5.00) g/dL Med Orders - Current: Current Medications Acetaminophen (Acetaminophen 325 Mg Tab) 650 mg PO Q6H PRN PRN Reason: Pain Last Admin: 04/29/21 12:32 Dose: 650 mg Documented by: Citalopram Hydrobromide (Citalopram 20 Mg Tab Own Med) 20 mg PO DAILY@1999 [facility] Last Admin: 04/29/21 20:09 Dose: 20 mg Documented by: Sodium Chloride (Normal Saline) 1,000 mls @ 125 mls/hr IV ASDIRECTED [facility] Last Admin: 04/30/21 01:59 Dose: 125 mls/hr Documented by: Ketorolac Tromethamine (Ketorolac 30 Mg/Ml Sdv) 15 mg IVPUSH Q6H PRN PRN Reason: Pain Stop: 05/04/21 10:58 Ondansetron HCl (Ondansetron 4 Mg/2 Ml Sdv) 4 mg IV Q6H PRN PRN Reason: Nausea/Vomiting Pantoprazole Sodium (Pantoprazole 40 Mg Vial) 40 mg IVPUSH DAILY [facility] Last Admin: 04/30/21 09:17 Dose: 40 mg Documented by: Ropinirole 0.5 Mg (Tab Own Med) 0 each PO BID@1099,1999 [facility] Last Admin: 04/30/21 12:13 Dose: 1 each Documented by: Sodium Chloride (Sodium Chloride 0.9% 10 Ml Syringe) 10 ml FLUSH Q8HR PRN PRN Reason: keep vein open Last Admin: 04/29/21 08:54 Dose: 10 ml Documented by: Discontinued Medications Citalopram Hydrobromide (Citalopram 20 Mg Tab) 20 mg PO DAILY PATRICIA Sodium Chloride (Normal Saline) Confirm Administered Dose 1,000 mls @ as directed .ROUTE .STK-MED ONE Stop: 04/29/21 06:36 Last Admin: 04/29/21 06:45 Dose: Not Given Documented by: Sodium Chloride (Normal Saline) 1,000 mls @ 999 mls/hr IV .BOLUS ONE Stop: 04/29/21 07:38 Last Admin: 04/29/21 06:46 Dose: 999 mls/hr Documented by: Sodium Chloride (Normal Saline) 50 mls @ 200 mls/min IV ASDIRECTED PATRICIA Last Admin: 04/29/21 07:48 Dose: 200 mls/min Documented by: Sodium Chloride (Normal Saline) 1,000 mls @ 125 mls/hr IV ASDIRECTED PATRICIA Iopamidol (Iopamidol 755 Mg/Ml 75 Ml Bottle) 75 ml IVPUSH ONETIME ONE Stop: 04/29/21 07:14 Last Admin: 04/29/21 07:48 Dose: 75 ml Documented by: Ketorolac Tromethamine (Ketorolac 30 Mg/Ml Sdv) 30 mg IVPUSH ONETIME ONE Stop: 04/29/21 07:19 Last Admin: 04/29/21 07:30 Dose: 30 mg Documented by: Ketorolac Tromethamine (Ketorolac 30 Mg/Ml Sdv) 30 mg IVPUSH Q8H PRN PRN Reason: Pain Stop: 05/04/21 10:58 Ketorolac Tromethamine (Ketorolac 30 Mg/Ml Sdv) 15 mg IVPUSH Q8H PRN PRN Reason: Pain Stop: 05/04/21 10:58 Methylprednisolone Sodium Succinate (Methylprednisolone Sodium Succinate 125 Mg/2 Ml Sdv) 125 mg IVPUSH ONETIME ONE Stop: 04/29/21 08:40 Last Admin: 04/29/21 08:50 Dose: 125 mg Documented by: Ondansetron HCl (Ondansetron 4 Mg/2 Ml Sdv) Confirm Administered Dose 4 mg .ROUTE .STK-MED ONE Stop: 04/29/21 06:36 Last Admin: 04/29/21 06:45 Dose: Not Given Documented by: Ondansetron HCl (Ondansetron 4 Mg/2 Ml Sdv) 4 mg IVPUSH ONETIME ONE Stop: 04/29/21 06:39 Last Admin: 04/29/21 06:46 Dose: 4 mg Documented by: Ropinirole HCl (Ropinirole 0.25 Mg Tab) 0.5 mg PO BID PATRICIA - Exam Quality Assessment: Denies: Supplemental Oxygen General: Reports: Alert, Oriented, Cooperative, No Acute Distress HEENT: Reports: Pupils Equal, Pupils Reactive, Mucous Membr. Moist/[place] Neck: Reports: Supple, Trachea Midline Lungs: Reports: Clear to Auscultation, Normal Respiratory Effort Cardiovascular: Reports: Regular Rate, Regular Rhythm, No Murmurs GI/Abdominal Exam: Normal Bowel Sounds, Soft, Non-Tender, No Distention (Female) Exam: Deferred Rectal (Female) Exam: Deferred Back Exam: Reports: Normal Inspection, Full Range of Motion Extremities: Normal Inspection, Normal Range of Motion, Non-Tender, No Pedal Edema, Normal Capillary Refill Skin: Reports: Warm, Dry, Intact Neurological: Reports: No New Focal Deficit Psy/Mental Status: Reports: Alert, Normal Affect, Normal Mood
== END 2021-04-30 13:20 | disposition home or self-care (01) ==
LOC: KA.ED 06:12 → KA.MS 08:45
PROVIDERS: ADMIT Physician Assistant Medical; ATTEND Nurse Practitioner Family
DX: K52.9 Noninfective gastroenteritis and colitis, unspecified (principal); E78.5 Hyperlipidemia, unspecified; R31.9 Hematuria, unspecified; G25.81 Restless legs syndrome; F32.9 Major depressive disorder, single episode, unspecified; Z88.8 Allergy status to other drugs, medicaments and biological substances; Z88.0 Allergy status to penicillin; Z88.2 Allergy status to sulfonamides; Z91.013 Allergy to seafood; Z91.018 Allergy to other foods; Z79.82 Long term (current) use of aspirin; Z79.899 Other long term (current) drug therapy; Z90.49 Acquired absence of other specified parts of digestive tract; Z98.890 Other specified postprocedural states; Z20.822 Contact with and (suspected) exposure to COVID-19
CPT/HCPCS: 36415; 74177; 80053; 81001; 83690; 85025; 86140; 87086; 96374; 96375; 96376; 99285; A9270; C9113; G0378; J1885; J2405; J2930; J7030; Q9967; U0002; 99283